=== PATIENT | female | born 1940 | race African-American/Black ===

== ENCOUNTER 2016-07-25 06:07 | Emergency (ER) | payer OTHER ==
[~2016-07-25] VITALS: Ht 167.6 cm; Wt 127.0 kg
[~2016-07-25 06:07] MED LIST: ALBU6.7H2 INH; ASPI-1035 PO; ATOR40TA70 PO; FLUO40CA49 PO; FLUT1DIS3 INH; HYDR-519 PO; INSASP SQ; INSU100V3 SUBCUT; LOSA50TA20 PO; METO25TA6 PO; TERA1CAP PO
[2016-07-25] MEDS ORDERED: MORPHINE SULFATE 4 MG/ML CPJ (NOT FOR IM USE) IV STA (06:39)
[2016-07-25 07:13] LABS: BASOPHILS % 0.5 % (0.0-2.0); DIFFERENTIAL COMMENT 0; EOSINOPHILS % 0.6 % (0.0-5.0); HEMATOCRIT. 43.1 % (36.0-48.0); HEMOGLOBIN. 13.9 g/dL (12.0-16.0); LYMPHOCYTES % 10.8 % (20.0-50.0); MEAN CORPUSCULAR HGB CONC 32.1 g/dL (31.0-37.0); MEAN CORPUSCULAR VOLUME 87.2 fL (81.0-99.0); MEAN PLATELET VOLUME 7.8 fl (7.4-10.4); MONOCYTES % 6.3 % (2.0-8.0); NEUTROPHILS % 81.8 % (40.0-76.0); PLATELET 265 x1000/uL (130-400); RED BLOOD CELL COUNT 4.95 mill/uL (4.2-5.4); RED CELL DISTRIBUTION WIDTH 16.2 % (11.6-14.6); WHITE BLOOD COUNT 16.3 x1000/uL (4.5-11.0)
[2016-07-25] MEDS ORDERED: ONDANSETRON HCL 4MG/2ML VIAL IV ONE (07:15)
[2016-07-25 07:20] LABS: CHLORIDE 100 mEq/L (98-107); INDEX HEMOLYSI 1 (1-3); INDEX ICTERIC 1 (1-4); INDEX LIPEMIC 1 (1-3)
[2016-07-25 07:22] LABS: INR 1.2; PROTHROMBIN TIME 12.2 sec
[2016-07-25 07:23] LABS: CLARITY URINE CLEAR (CLEAR); COLOR URINE YELLOW (YELLOW); GLUCOSE URINE NEGATIVE (NEGATIVE); KETONES URINE NEGATIVE (NEGATIVE); LEUKOCYTE ESTERASE URINE NEGATIVE (NEGATIVE); NITRITE URINE POSITIVE (NEGATIVE); OCCULT BLOOD URINE NEGATIVE (NEGATIVE); PH URINE 7.5 (4.5-8.0); PROTEIN URINE 4+ (NEGATIVE); SPECIFIC GRAVITY URINE 1.021 (1.005-1.030)
[2016-07-25 07:28] LABS: ALANINE AMINOTRANSFERASE 13 IU/L (13-61); ALBUMIN 3.6 g/dL (3.4-5.0); ANION GAP 15; CALCIUM 9.3 mg/dL (8.5-10.1); CARBON DIOXIDE 28 mEq/L (21-32); LIPASE 129 IU/L (73-393); UREA NITROGEN BLOOD 27 mg/dL (7-21); eGFR > 60 mL/min (>60)
[2016-07-25] MEDS ORDERED: LEVOFLOXACIN 750MG PREMIX 150 ML IV ONE (07:45)
[2016-07-25 07:48] LABS: SQUAMOUS EPITHELIAL CELL URINE 2+ /lpf (RARE/1+)
[2016-07-25 07:49] LABS: BACTERIA URINE 4+; RBC URINE 0-2 /hpf (0-2)
[2016-07-25] MEDS ORDERED: MORPHINE SULFATE 4 MG/ML CPJ (NOT FOR IM USE) IV ONE ×2 (08:00→11:45)
[2016-07-25] MEDS ORDERED: SODIUM CHLORIDE 0.9% 1,000 ML IV ONE (09:55)
[2016-07-25 12:17] VITALS: BP 165/79
== END 2016-07-25 12:54 | disposition short-term general hospital (02) ==
LOC: ER 06:07
DX: K43.9 Ventral hernia without obstruction or gangrene (principal); E11.9 Type 2 diabetes mellitus without complications; E78.5 Hyperlipidemia, unspecified; J44.9 Chronic obstructive pulmonary disease, unspecified; Z88.0 Allergy status to penicillin; Z88.8 Allergy status to other drugs, medicaments and biological substances; Z79.899 Other long term (current) drug therapy; Z79.4 Long term (current) use of insulin; Z79.82 Long term (current) use of aspirin; Z87.891 Personal history of nicotine dependence; F12.10 Cannabis abuse, uncomplicated; I10 Essential (primary) hypertension
CPT/HCPCS: 36415; 43753; 71010; 74176; 80053; 81001; 82962; 83690; 85025; 85610; 96361; 96365; 96366; 96375; 96376; 99285; J1956; J2270; J2405; J7030

== ENCOUNTER 2018-02-14 18:24 | Emergency (ER) | payer OTHER ==
[~2018-02-14] VITALS: Ht 170.2 cm; Wt 109.0 kg
[~2018-02-14 18:24] MED LIST changes: -ALBU6.7H2 INH; +ALBU6.7H9 INH; -ASPI-1035 PO; +ASPI-1158 PO; -TERA1CAP PO; +TERA1CAP7 PO
[2018-02-14] MEDS ORDERED: MAGNESIUM/ALUMINUM HYDROXIDE/SIMETHICONE 30ML UDC PO STA (18:46)
[2018-02-14] MEDS ORDERED: SODIUM CHLORIDE 0.9% 1,000 ML IV ONE (18:46)
[2018-02-14] MEDS ORDERED: KETOROLAC 30MG/ML VIAL IV STA (18:46)
[2018-02-14] MEDS ORDERED: ONDANSETRON HCL 4MG/2ML INJ IV STA (18:46)
[2018-02-14 19:26] LABS: HEMATOCRIT. 36.8 % (36.0-48.0); MEAN CORPUSCULAR HEMOGLOBIN 29.1 pg (28.0-32.0); MEAN CORPUSCULAR VOLUME 89.4 fL (81.0-99.0); MEAN PLATELET VOLUME 7.5 fl (7.4-10.4); PLATELET 244 x1000/uL (130-400); RED BLOOD CELL COUNT 4.11 mill/uL (4.2-5.4); RED CELL DISTRIBUTION WIDTH 16.2 % (11.6-14.6)
[2018-02-14 19:31] LABS: CHLORIDE 101 mEq/L (98-107)
[2018-02-14 20:21] LABS: PLATELET ESTIMATE NORMAL
[2018-02-14 21:09] LABS: CLARITY URINE CLOUDY (CLEAR); COLOR URINE YELLOW (YELLOW); KETONES URINE TRACE (NEGATIVE); LEUKOCYTE ESTERASE URINE NEGATIVE (NEGATIVE); NITRITE URINE NEGATIVE (NEGATIVE); OCCULT BLOOD URINE TRACE (NEGATIVE); PROTEIN URINE 3+ (NEGATIVE); SPECIFIC GRAVITY URINE 1.021 (1.005-1.030)
[2018-02-14 22:05] VITALS: BP 179/75
== END 2018-02-14 22:08 | disposition home or self-care (01) ==
LOC: ER 18:24
DX: R10.33 Periumbilical pain (principal); R11.2 Nausea with vomiting, unspecified; I50.9 Heart failure, unspecified; E78.00 Pure hypercholesterolemia, unspecified; E11.9 Type 2 diabetes mellitus without complications; F12.10 Cannabis abuse, uncomplicated; Z88.2 Allergy status to sulfonamides; Z88.0 Allergy status to penicillin; Z88.6 Allergy status to analgesic agent; Z88.1 Allergy status to other antibiotic agents; J44.9 Chronic obstructive pulmonary disease, unspecified; Z91.011 Allergy to milk products; Z88.8 Allergy status to other drugs, medicaments and biological substances; Z79.4 Long term (current) use of insulin; Z79.82 Long term (current) use of aspirin; Z79.899 Other long term (current) drug therapy; I11.0 Hypertensive heart disease with heart failure; Z86.73 Personal history of transient ischemic attack (TIA), and cerebral infarction without residual deficits
CPT/HCPCS: 36415; 74176; 80053; 81003; 83690; 85025; 96361; 96374; 96375; 99285; J1885; J2405; J7030

== ENCOUNTER 2018-06-11 10:33 | Inpatient (IN) | payer OTHER ==
[~2018-06-11] VITALS: Ht 165.1 cm; Wt 115.4 kg
[2018-06-11] MEDS ORDERED: METHYLPREDNISOLONE SOD SUCC 125 MG/2 ML VIAL IV STA (10:44)
[2018-06-11] MEDS ORDERED: ALBUTEROL (0.083%) 2.5MG/3ML NEB HHN STA (10:44)
[2018-06-11] MEDS ORDERED: IPRATROPIUM BROMIDE (0.02%) 0.5MG/2.5ML NEB HHN STA (10:44)
[2018-06-11] MEDS ORDERED: LEVOFLOXACIN 750MG PREMIX 150 ML IV STA (10:44)
[2018-06-11] MEDS ORDERED: ALBUTEROL (0.5%) 2.5MG/0.5ML NEB HHN ONE (11:00)
[2018-06-11] MEDS ORDERED: ALBUTEROL (0.083%) 2.5MG/3ML NEB ONE (11:01)
[2018-06-11] MEDS ORDERED: IPRATROPIUM BROMIDE (0.02%) 0.5MG/2.5ML NEB ONE (11:01)
[2018-06-11 11:42] LABS: BASOPHILS % 0.7 % (0.0-2.0); EOSINOPHILS % 2.3 % (0.0-5.0); HEMATOCRIT. 26.6 % (36.0-48.0); HEMOGLOBIN. 8.3 g/dL (12.0-16.0); LYMPHOCYTES % 17.6 % (20.0-50.0); MEAN CORPUSCULAR VOLUME 89.6 fL (81.0-99.0); MEAN PLATELET VOLUME 7.2 fl (7.4-10.4); MONOCYTES % 8.2 % (2.0-8.0); NEUTROPHILS % 71.2 % (40.0-76.0); PLATELET 213 x1000/uL (130-400); RED BLOOD CELL COUNT 2.97 mill/uL (4.2-5.4)
[2018-06-11 11:47] LABS: CHLORIDE 105 mEq/L (98-107)
[2018-06-11] MEDS ORDERED: FUROSEMIDE 40MG/4ML VIAL IVP ONE (12:00)
[2018-06-11] MEDS ORDERED: BUDESONIDE 0.5MG/2ML NEB HHN SCH (13:30)
[2018-06-11] MEDS ORDERED: ONDANSETRON HCL 4MG/2ML INJ IV PRN (13:30)
[2018-06-11] MEDS: ACETAMINOPHEN 325MG TABLET PO PRN (15:15)
[2018-06-11 16:09] LABS: CLARITY URINE CLEAR (CLEAR); COLOR URINE YELLOW (YELLOW); KETONES URINE NEGATIVE (NEGATIVE); LEUKOCYTE ESTERASE URINE NEGATIVE (NEGATIVE); NITRITE URINE NEGATIVE (NEGATIVE); OCCULT BLOOD URINE TRACE (NEGATIVE); PROTEIN URINE 2+ (NEGATIVE); SPECIFIC GRAVITY URINE 1.013 (1.005-1.030); UROBILINOGEN URINE 0.2 E.U./dL (0.2-1.0)
[2018-06-11 16:22] LABS: *AMPHETAMINES SCREEN URINE NEGATIVE (NEGATIVE); *BARBITURATES SCREEN URINE NEGATIVE (NEGATIVE); *BENZODIAZEPINES SCREEN URINE NEGATIVE (NEGATIVE); *COCAINE SCREEN URINE NEGATIVE (NEGATIVE)
[2018-06-11 16:23] LABS: CANNABINOID URINE SCREEN NEGATIVE (NEGATIVE); METHADONE URINE SCREEN NEGATIVE (NEGATIVE); OPIATES URINE SCREEN PRESUMTIVE POSITIVE (NEGATIVE); PHENCYCLIDINE URINE SCREEN NEGATIVE (NEGATIVE)
[2018-06-11] MEDS ORDERED: IPRATROPIUM/ALBUTEROL 0.5-3(2.5)MG/3ML NEB HHN PRN (16:48)
[2018-06-11] MEDS ORDERED: GUAIFENESIN-DM 200MG-20MG/10ML UDC PO PRN (17:00)
[2018-06-11 18:12] VITALS: BP 156/69
[2018-06-11] MEDS: METHYLPREDNISOLONE SOD SUCC 40 MG/ML VIAL IV SCH (18:57)
[2018-06-11 19:01] LABS: BG BASE EXCESS 5.3 mmol/L (-2.0-2.0); BG BILEVEL POS AIRWAY PRESSURE 20/5; BG CARBOXYHEMOGLOBIN 0.2 % (0.5-1.5); BG FRACTION INSPIRED OXYGEN 65; BG HCO3 ACT 31.9 mmol/L (22.0-26.0); BG METHEMOGLOBIN 0.1 % (0.0-1.5); BG OXYHEMOGLOBIN 98.7 % (94.0-97.0); BG PCO2 58.1 mmHg (35.0-45.0); BG PH 7.358 (7.350-7.450); BG PO2 178.1 mmHg (75.0-100.0); BG SAMPLE SITE RIGHT RADIAL; BG TOTAL HEMOGLOBIN 10.2 g/dL (12.0-18.0); BG VENT MODE MASK - BIPAP; BG VENT RATE 16 set
[2018-06-11] MEDS: IPRATROPIUM/ALBUTEROL 0.5-3(2.5)MG/3ML NEB HHN SCH (20:46)
[2018-06-11 22:00] VITALS: BP 156/66
[2018-06-12] VITALS (11 sets, daily range): BP systolic 133–160; BP diastolic 57–77
[2018-06-12] MEDS: GUAIFENESIN 600MG ER TABLET PO SCH ×3 (00:06→21:18)
[2018-06-12] MEDS: IPRATROPIUM/ALBUTEROL 0.5-3(2.5)MG/3ML NEB HHN SCH ×6 (01:01→21:27)
[2018-06-12] MEDS: METHYLPREDNISOLONE SOD SUCC 40 MG/ML VIAL IV SCH ×3 (03:39→17:25)
[2018-06-12] MEDS ORDERED: DEXTROSE 50% WATER 50ML SYRINGE IV PRN (05:30)
[2018-06-12] MEDS: BLOOD SUGAR DIAGNOSTIC STRIP TEST SCH ×4 (05:51→21:18)
[2018-06-12 07:21] LABS: BASOPHILS % 0.1 % (0.0-2.0); HEMATOCRIT. 25.4 % (36.0-48.0); HEMOGLOBIN. 8.1 g/dL (12.0-16.0); LYMPHOCYTES % 7.1 % (20.0-50.0); MEAN CORPUSCULAR HEMOGLOBIN 28.1 pg (28.0-32.0); MEAN CORPUSCULAR VOLUME 87.5 fL (81.0-99.0); MEAN PLATELET VOLUME 7.2 fl (7.4-10.4); MONOCYTES % 5.1 % (2.0-8.0); NEUTROPHILS % 87.7 % (40.0-76.0); PLATELET 191 x1000/uL (130-400); RED CELL DISTRIBUTION WIDTH 16.8 % (11.6-14.6)
[2018-06-12 07:59] LABS: CHLORIDE 103 mEq/L (98-107)
[2018-06-12] MEDS: FUROSEMIDE 40MG/4ML VIAL IVP SCH (08:17)
[2018-06-12] MEDS: INSULIN LISPRO 100 UNITS/ML SUBCUT SCH ×4 (08:18→21:20)
[2018-06-12 10:40] LABS: T4 FREE 1.18 ng/dL (0.76-1.46)
[2018-06-12] MEDS: AZITHROMYCIN 500 MG TABLET PO SCH (11:09)
[2018-06-12] MEDS: ENOXAPARIN 30MG/0.3ML SYR SUBCUT SCH ×2 (11:11→21:19)
[2018-06-12 15:54] LABS: CREATINE KINASE 76 IU/L (26-192)
[2018-06-12 15:55] LABS: CREATINE KINASE MB FRACTION < 1.0 ng/mL (0.5-3.6)
[2018-06-12] MEDS: NYSTATIN POWDER 15GM TOP SCH ×2 (17:00→17:20)
[2018-06-12] MEDS: ACETAMINOPHEN 325MG TABLET PO PRN (22:48)
[2018-06-13] VITALS (12 sets, daily range): BP systolic 137–164; BP diastolic 53–90
[2018-06-13] MEDS: IPRATROPIUM/ALBUTEROL 0.5-3(2.5)MG/3ML NEB HHN SCH ×6 (00:29→20:20)
[2018-06-13 00:36] LABS: CREATINE KINASE MB FRACTION 1.4 ng/mL (0.5-3.6)
[2018-06-13] MEDS: METHYLPREDNISOLONE SOD SUCC 40 MG/ML VIAL IV SCH ×2 (02:44→12:44)
[2018-06-13] MEDS: BLOOD SUGAR DIAGNOSTIC STRIP TEST SCH ×4 (05:38→21:17)
[2018-06-13 07:35] LABS: HEMATOCRIT. 27.2 % (36.0-48.0); HEMOGLOBIN. 8.8 g/dL (12.0-16.0); MEAN CORPUSCULAR HEMOGLOBIN 28.3 pg (28.0-32.0); MEAN CORPUSCULAR VOLUME 87.3 fL (81.0-99.0); MEAN PLATELET VOLUME 7.5 fl (7.4-10.4); PLATELET 234 x1000/uL (130-400); RED BLOOD CELL COUNT 3.12 mill/uL (4.2-5.4); RED CELL DISTRIBUTION WIDTH 17.1 % (11.6-14.6)
[2018-06-13 07:37] LABS: CHLORIDE 104 mEq/L (98-107)
[2018-06-13 07:51] LABS: CREATINE KINASE 93 IU/L (26-192)
[2018-06-13 07:54] LABS: CREATINE KINASE MB FRACTION 1.1 ng/mL (0.5-3.6)
[2018-06-13] MEDS: GUAIFENESIN 600MG ER TABLET PO SCH ×2 (09:06→21:17)
[2018-06-13] MEDS: AZITHROMYCIN 500 MG TABLET PO SCH (09:06)
[2018-06-13] MEDS: ENOXAPARIN 30MG/0.3ML SYR SUBCUT SCH ×2 (09:06→21:15)
[2018-06-13] MEDS: FUROSEMIDE 40MG/4ML VIAL IVP SCH (09:06)
[2018-06-13] MEDS: NYSTATIN POWDER 15GM TOP SCH ×3 (09:07→17:35)
[2018-06-13] MEDS: INSULIN LISPRO 100 UNITS/ML SUBCUT SCH ×4 (09:08→21:16)
[2018-06-13] MEDS: INSULIN GLARGINE UD 100 UNITS/ML SYR SUBCUT SCH ×2 (12:36→21:17)
[2018-06-13] MEDS: ACETAMINOPHEN 325MG TABLET PO PRN (19:27)
[2018-06-13 21:29] LABS: PLATELET ESTIMATE NORMAL
[2018-06-14] VITALS (12 sets, daily range): BP systolic 135–168; BP diastolic 66–97
[2018-06-14] MEDS: IPRATROPIUM/ALBUTEROL 0.5-3(2.5)MG/3ML NEB HHN SCH ×6 (00:34→20:47)
[2018-06-14 05:45] LABS: HEMATOCRIT. 27.3 % (36.0-48.0); HEMOGLOBIN. 8.7 g/dL (12.0-16.0); MEAN CORPUSCULAR HEMOGLOBIN 27.5 pg (28.0-32.0); MEAN CORPUSCULAR VOLUME 85.9 fL (81.0-99.0); MEAN PLATELET VOLUME 7.4 fl (7.4-10.4); PLATELET 258 x1000/uL (130-400); RED BLOOD CELL COUNT 3.17 mill/uL (4.2-5.4); RED CELL DISTRIBUTION WIDTH 16.9 % (11.6-14.6)
[2018-06-14 06:07] LABS: CHLORIDE 101 mEq/L (98-107)
[2018-06-14] MEDS: BLOOD SUGAR DIAGNOSTIC STRIP TEST SCH ×4 (06:50→21:59)
[2018-06-14] MEDS: AZITHROMYCIN 500 MG TABLET PO SCH (08:41)
[2018-06-14] MEDS: ENOXAPARIN 30MG/0.3ML SYR SUBCUT SCH ×2 (08:42→22:25)
[2018-06-14] MEDS: PREDNISONE 20MG TABLET PO SCH (08:42)
[2018-06-14] MEDS: GUAIFENESIN 600MG ER TABLET PO SCH ×2 (08:42→22:24)
[2018-06-14] MEDS: FUROSEMIDE 40MG/4ML VIAL IVP SCH (08:42)
[2018-06-14] MEDS: INSULIN LISPRO 100 UNITS/ML SUBCUT SCH ×4 (08:43→22:40)
[2018-06-14] MEDS: NYSTATIN POWDER 15GM TOP SCH ×3 (08:52→17:41)
[2018-06-14] MEDS: ACETAMINOPHEN 325MG TABLET PO PRN (09:46)
[2018-06-14] MEDS: INSULIN GLARGINE UD 100 UNITS/ML SYR SUBCUT SCH ×2 (09:48→22:40)
[2018-06-14] MEDS ORDERED: CLONIDINE 0.1MG TABLET PO PRN (10:30)
[2018-06-14] MEDS ORDERED: FURO20TA4 MT (10:52)
[2018-06-14] MEDS ORDERED: AMLO5TAB88 MT (10:52)
[2018-06-14] MEDS ORDERED: METO-396 MT (10:52)
[2018-06-14] MEDS ORDERED: CHOL200059 MT (10:52)
[2018-06-14] MEDS ORDERED: ZYR5 MT (10:52)
[2018-06-14] MEDS ORDERED: ASPI-1159 MT (10:52)
[2018-06-14] MEDS ORDERED: METF-516 MT (10:52)
[2018-06-14] MEDS ORDERED: LOSA100T14 MT (10:52)
[2018-06-14] MEDS ORDERED: GABA-531 MT (10:52)
[2018-06-14] MEDS ORDERED: ATOR40TA70 MT (10:52)
[2018-06-14] MEDS ORDERED: FLUO-124 MT (10:52)
[2018-06-14] MEDS ORDERED: HYDR-4009 MT (10:52)
[2018-06-14] MEDS: AMLODIPINE 5MG TABLET PO SCH (11:54)
[2018-06-14] MEDS: METOPROLOL TARTRATE 25MG TABLET PO SCH ×2 (11:55→22:24)
[2018-06-14] MEDS: LOSARTAN POTASSIUM 100 MG TABLET PO SCH (11:55)
[2018-06-14] MEDS: FLUOXETINE HCL 20MG CAPSULE PO SCH (11:55)
[2018-06-14 15:22] LABS: PLATELET ESTIMATE NORMAL
[2018-06-15] VITALS (13 sets, daily range): BP systolic 131–167; BP diastolic 58–76
[2018-06-15] MEDS: IPRATROPIUM/ALBUTEROL 0.5-3(2.5)MG/3ML NEB HHN SCH ×6 (00:36→21:06)
[2018-06-15] MEDS: INSULIN LISPRO 100 UNITS/ML SUBCUT SCH ×4 (06:49→22:02)
[2018-06-15] MEDS: BLOOD SUGAR DIAGNOSTIC STRIP TEST SCH ×4 (06:49→21:57)
[2018-06-15 08:01] LABS: BASOPHILS % 0.2 % (0.0-2.0); EOSINOPHILS % 1.1 % (0.0-5.0); HEMATOCRIT. 33.5 % (36.0-48.0); HEMOGLOBIN. 10.7 g/dL (12.0-16.0); LYMPHOCYTES % 23.5 % (20.0-50.0); MEAN CORPUSCULAR HEMOGLOBIN 27.6 pg (28.0-32.0); MEAN CORPUSCULAR VOLUME 86.6 fL (81.0-99.0); MEAN PLATELET VOLUME 7.2 fl (7.4-10.4); NEUTROPHILS % 63.2 % (40.0-76.0); PLATELET 282 x1000/uL (130-400); RED BLOOD CELL COUNT 3.87 mill/uL (4.2-5.4); RED CELL DISTRIBUTION WIDTH 17.1 % (11.6-14.6)
[2018-06-15] MEDS: FUROSEMIDE 40MG/4ML VIAL IVP SCH (08:23)
[2018-06-15] MEDS: METOPROLOL TARTRATE 25MG TABLET PO SCH ×2 (08:23→21:58)
[2018-06-15] MEDS: GUAIFENESIN 600MG ER TABLET PO SCH ×2 (08:23→21:58)
[2018-06-15] MEDS: AMLODIPINE 5MG TABLET PO SCH (08:23)
[2018-06-15] MEDS: LOSARTAN POTASSIUM 100 MG TABLET PO SCH (08:23)
[2018-06-15] MEDS: AZITHROMYCIN 500 MG TABLET PO SCH (08:23)
[2018-06-15] MEDS: FLUOXETINE HCL 20MG CAPSULE PO SCH (08:23)
[2018-06-15] MEDS: PREDNISONE 20MG TABLET PO SCH (08:24)
[2018-06-15] MEDS: ENOXAPARIN 30MG/0.3ML SYR SUBCUT SCH ×2 (08:24→21:59)
[2018-06-15] MEDS: GABAPENTIN 300MG CAPSULE PO SCH (08:26)
[2018-06-15] MEDS: NYSTATIN POWDER 15GM TOP SCH ×3 (08:27→16:49)
[2018-06-15 08:38] LABS: CHLORIDE 102 mEq/L (98-107)
[2018-06-15] MEDS ORDERED: LISINOPRIL 10MG TABLET PO SCH (09:00)
[2018-06-15] MEDS: INSULIN GLARGINE UD 100 UNITS/ML SYR SUBCUT SCH ×2 (12:29→22:03)
[2018-06-16 00:37] VITALS: BP 133/53
[2018-06-16] MEDS: IPRATROPIUM/ALBUTEROL 0.5-3(2.5)MG/3ML NEB HHN SCH ×3 (00:38→08:34)
[2018-06-16 02:36] VITALS: BP 130/51
[2018-06-16 04:00] VITALS: BP 136/62
[2018-06-16 06:00] VITALS: BP 141/63
[2018-06-16] MEDS: BLOOD SUGAR DIAGNOSTIC STRIP TEST SCH (06:22)
[2018-06-16 08:00] VITALS: BP 160/61
[2018-06-16] MEDS: FLUOXETINE HCL 20MG CAPSULE PO SCH (08:02)
[2018-06-16] MEDS: AZITHROMYCIN 500 MG TABLET PO SCH (08:02)
[2018-06-16] MEDS: FUROSEMIDE 40MG/4ML VIAL IVP SCH (08:02)
[2018-06-16] MEDS: AMLODIPINE 5MG TABLET PO SCH (08:02)
[2018-06-16] MEDS: METOPROLOL TARTRATE 25MG TABLET PO SCH (08:02)
[2018-06-16] MEDS: GUAIFENESIN 600MG ER TABLET PO SCH (08:03)
[2018-06-16] MEDS: LOSARTAN POTASSIUM 100 MG TABLET PO SCH (08:03)
[2018-06-16] MEDS: PREDNISONE 20MG TABLET PO SCH (08:03)
[2018-06-16] MEDS: GABAPENTIN 300MG CAPSULE PO SCH (08:22)
[2018-06-16] MEDS: ENOXAPARIN 30MG/0.3ML SYR SUBCUT SCH (08:23)
[2018-06-16] MEDS: INSULIN LISPRO 100 UNITS/ML SUBCUT SCH (08:30)
[2018-06-16] MEDS: NYSTATIN POWDER 15GM TOP SCH (09:00)
[2018-06-16 09:46] VITALS: BP 165/89
== END 2018-06-16 10:53 | disposition home or self-care (01) | DRG 291 ==
LOC: ER 10:33 → 3WST 12:26 → EDBEDREQ 12:29 → EDBEDREQTM 12:29 → ENRESERV 15:30
PROVIDERS: ADMIT Internal Medicine; ATTEND Internal Medicine
PROC: 5A09357 Assistance with Respiratory Ventilation, Less than 24 Consecutive Hours, Continuous Positive Airway Pressure (ICD-10-PCS; principal; 2018-06-11)
PROC: 5A09357 Assistance with Respiratory Ventilation, Less than 24 Consecutive Hours, Continuous Positive Airway Pressure (ICD-10-PCS; 2018-06-13)
PROC: 5A09357 Assistance with Respiratory Ventilation, Less than 24 Consecutive Hours, Continuous Positive Airway Pressure (ICD-10-PCS; 2018-06-14)
PROC: 5A09357 Assistance with Respiratory Ventilation, Less than 24 Consecutive Hours, Continuous Positive Airway Pressure (ICD-10-PCS; 2018-06-16)
DX: I11.0 Hypertensive heart disease with heart failure (principal); J96.01 Acute respiratory failure with hypoxia; E44.1 Mild protein-calorie malnutrition; J44.1 Chronic obstructive pulmonary disease with (acute) exacerbation; Z68.41 Body mass index [BMI] 40.0-44.9, adult; I42.9 Cardiomyopathy, unspecified; E78.5 Hyperlipidemia, unspecified; E11.9 Type 2 diabetes mellitus without complications; E66.01 Morbid (severe) obesity due to excess calories; D64.9 Anemia, unspecified; I50.43 Acute on chronic combined systolic (congestive) and diastolic (congestive) heart failure; I27.20 Pulmonary hypertension, unspecified; I48.0 Paroxysmal atrial fibrillation; Z86.73 Personal history of transient ischemic attack (TIA), and cerebral infarction without residual deficits; Z88.2 Allergy status to sulfonamides; Z88.0 Allergy status to penicillin; Z99.81 Dependence on supplemental oxygen; Z88.8 Allergy status to other drugs, medicaments and biological substances; Z88.6 Allergy status to analgesic agent; Z90.49 Acquired absence of other specified parts of digestive tract; Z71.3 Dietary counseling and surveillance
CPT/HCPCS: 36415; 36600; 71045; 80048; 80061; 80305; 82375; 82550; 82553; 82805; 82962; 83036; 83605; 83880; 84134; 84145; 84439; 84443; 84484; 85379; 87077; 87186; 93005; 93306; 93970; 94640; 94644; 94660; 96374; 96375; 97163; 99291; J1650; J1815; J1940; J1956; J2920; J2930; J7512; J7611; J7620; J7626; A4315

== ENCOUNTER 2018-07-19 05:27 | Emergency (ER) | payer OTHER ==
[~2018-07-19] VITALS: Ht 165.1 cm; Wt 122.0 kg
[~2018-07-19 05:27] MED LIST changes: -ALBU6.7H9 INH; +AMLO5TAB88 MT; -ASPI-1158 PO; +ASPI-1159 MT; +ATOR40TA70 MT; -ATOR40TA70 PO; +CHOL200059 MT; +FLUO-124 MT; -FLUO40CA49 PO; -FLUT1DIS3 INH; +FURO20TA4 MT; +GABA-531 MT; +HYDR-4009 MT; -HYDR-519 PO; -INSASP SQ; -INSU100V3 SUBCUT; +LOSA100T14 MT; -LOSA50TA20 PO; +METF-516 MT; +METO-396 MT; -METO25TA6 PO; -TERA1CAP7 PO; +ZYR5 MT
[2018-07-19] MEDS ORDERED: SODIUM CHLORIDE 0.9% 500 ML IV ONE (07:12)
[2018-07-19] MEDS ORDERED: IPRATROPIUM/ALBUTEROL 0.5-3(2.5)MG/3ML NEB HHN ONE (07:15)
[2018-07-19] MEDS ORDERED: ONDANSETRON HCL 4MG/2ML INJ IV ONE (07:15)
[2018-07-19] MEDS ORDERED: METHYLPREDNISOLONE SOD SUCC 125 MG/2 ML VIAL IV ONE (07:15)
[2018-07-19] MEDS ORDERED: MORPHINE SULFATE 4 MG/ML CPJ (NOT FOR IM USE) IV ONE (07:15)
[2018-07-19] MEDS ORDERED: LEVOFLOXACIN 750MG PREMIX 150 ML IV ONE (07:15)
[2018-07-19 07:30] LABS: CHLORIDE 102 mEq/L (98-107); INR 1.2
[2018-07-19 07:36] LABS: BASOPHILS % 0.7 % (0.0-2.0); EOSINOPHILS % 2.3 % (0.0-5.0); HEMATOCRIT. 26.1 % (36.0-48.0); HEMOGLOBIN. 8.2 g/dL (12.0-16.0); LYMPHOCYTES % 11.7 % (20.0-50.0); MEAN CORPUSCULAR HEMOGLOBIN 27.8 pg (28.0-32.0); MEAN CORPUSCULAR VOLUME 87.8 fL (81.0-99.0); MEAN PLATELET VOLUME 7.4 fl (7.4-10.4); MONOCYTES % 7.6 % (2.0-8.0); NEUTROPHILS % 77.7 % (40.0-76.0); PLATELET 288 x1000/uL (130-400); RED BLOOD CELL COUNT 2.97 mill/uL (4.2-5.4); RED CELL DISTRIBUTION WIDTH 17.1 % (11.6-14.6)
[2018-07-19] MEDS ORDERED: FUROSEMIDE 40MG/4ML VIAL IVP ONE (08:15)
[2018-07-19] MEDS ORDERED: ASPIRIN 81MG TABLET PO ONE (08:15)
[2018-07-19 08:34] LABS: BG BASE EXCESS -0.1 mmol/L (-2.0-2.0); BG CARBOXYHEMOGLOBIN 0.8 % (0.5-1.5); BG DEOXYHEMOGLOBIN 18.3 % (0.0-5.0); BG FRACTION INSPIRED OXYGEN 32; BG HCO3 ACT 26.8 mmol/L (22.0-26.0); BG METHEMOGLOBIN 0.4 % (0.0-1.5); BG OXYGEN SATURATION 81.5 % (92.0-98.5); BG OXYHEMOGLOBIN 80.5 % (94.0-97.0); BG PH 7.298 (7.350-7.450); BG PO2 51.4 mmHg (75.0-100.0); BG SAMPLE SITE RIGHT RADIAL; BG TOTAL HEMOGLOBIN 8.8 g/dL (12.0-18.0); BG VENT MODE NASAL CANNULA
[2018-07-19 08:47] LABS: CLARITY URINE CLEAR (CLEAR); COLOR URINE YELLOW (YELLOW); KETONES URINE NEGATIVE (NEGATIVE); LEUKOCYTE ESTERASE URINE TRACE (NEGATIVE); NITRITE URINE NEGATIVE (NEGATIVE); OCCULT BLOOD URINE NEGATIVE (NEGATIVE); PROTEIN URINE NEGATIVE (NEGATIVE); SPECIFIC GRAVITY URINE 1.015 (1.005-1.030); UROBILINOGEN URINE 0.2 E.U./dL (0.2-1.0)
[2018-07-19 12:13] VITALS: BP 132/51
== END 2018-07-19 12:14 | disposition short-term general hospital (02) ==
LOC: ER 05:27 → CANBEDREQ 15:49
DX: I11.0 Hypertensive heart disease with heart failure (principal); I50.9 Heart failure, unspecified; E11.9 Type 2 diabetes mellitus without complications; J44.9 Chronic obstructive pulmonary disease, unspecified; E66.9 Obesity, unspecified; Z68.41 Body mass index [BMI] 40.0-44.9, adult; Z88.0 Allergy status to penicillin; Z88.8 Allergy status to other drugs, medicaments and biological substances; Z88.2 Allergy status to sulfonamides; Z88.6 Allergy status to analgesic agent
CPT/HCPCS: 36415; 36600; 71045; 80053; 81003; 82375; 82805; 82962; 83605; 83690; 83880; 84145; 84484; 85025; 85610; 87040; 87077; 87086; 87186; 93005; 94640; 96365; 96375; 99291; J1940; J1956; J2270; J2405; J2930; J7040; J7620

== ENCOUNTER 2021-12-30 04:15 | Emergency (ER) | payer OTHER ==
[~2021-12-30] VITALS: Ht 167.6 cm; Wt 95.5 kg
[~2021-12-30 04:15] MED LIST changes: -ASPI-1159 MT; +ASPI-1497 MT; -FLUO-124 MT; +FLUO20CA39 MT; -GABA-531 MT; +GABA-532 MT; -LOSA100T14 MT; +LOSA100T32 MT; -METF-516 MT; +METF-818 MT
[2021-12-30 05:39] LABS: BG BASE EXCESS 3.9 mmol/L (-2.0-2.0); BG CARBOXYHEMOGLOBIN 0.5 % (0.5-1.5); BG FRACTION INSPIRED OXYGEN 21; BG HCO3 ACT 27.5 mmol/L (22.0-26.0); BG METHEMOGLOBIN 0.2 % (0.0-1.5); BG OXYHEMOGLOBIN 92.3 % (94.0-97.0); BG PCO2 37.8 mmHg (35.0-45.0); BG PH 7.479 (7.350-7.450); BG SAMPLE SITE RIGHT RADIAL; BG TOTAL HEMOGLOBIN 12.5 g/dL (12.0-18.0); BG VENT MODE ROOM AIR
[2021-12-30 05:54] LABS: BASOPHILS % 0.5 % (0.0-2.0); EOSINOPHILS % 1.4 % (0.0-5.0); HEMATOCRIT. 36.9 % (36.0-48.0); HEMOGLOBIN. 11.5 g/dL (12.0-16.0); MEAN CORPUSCULAR HEMOGLOBIN 28.7 pg (28.0-32.0); MEAN CORPUSCULAR VOLUME 92.5 fL (81.0-99.0); MEAN PLATELET VOLUME 7.3 fl (7.4-10.4); MONOCYTES % 7.2 % (2.0-8.0); NEUTROPHILS % 73.9 % (40.0-76.0); PLATELET 263 x1000/uL (130-400); RED BLOOD CELL COUNT 3.99 mill/uL (4.2-5.4); RED CELL DISTRIBUTION WIDTH 15.3 % (11.6-14.6)
[2021-12-30 06:01] LABS: CHLORIDE 108 mEq/L (98-107)
[2021-12-30] MEDS ORDERED: FUROSEMIDE 40MG/4ML VIAL IVP ONE (09:30)
[2021-12-30] MEDS ORDERED: FUROSEMIDE 40MG/4ML VIAL IVP SCH (09:45)
[2021-12-30 12:47] VITALS: BP 151/98
== END 2021-12-30 13:51 | disposition short-term general hospital (02) ==
LOC: ER 04:15
DX: R09.02 Hypoxemia (principal); I50.9 Heart failure, unspecified; E11.9 Type 2 diabetes mellitus without complications; J44.9 Chronic obstructive pulmonary disease, unspecified; Z20.822 Contact with and (suspected) exposure to COVID-19; Z79.84 Long term (current) use of oral hypoglycemic drugs; Z79.899 Other long term (current) drug therapy
CPT/HCPCS: 36415; 36600; 71045; 80053; 82375; 82805; 82962; 83880; 84484; 85025; 87426; 93005; 96374; 99285; C9803; J1940

== ENCOUNTER 2022-02-15 16:56 | Emergency (ER) | payer OTHER ==
[~2022-02-15] VITALS: Ht 167.6 cm; Wt 122.0 kg
[2022-02-15 18:52] LABS: BASOPHILS % 0.5 % (0.0-2.0); EOSINOPHILS % 1.9 % (0.0-5.0); HEMOGLOBIN. 11.5 g/dL (12.0-16.0); LYMPHOCYTES % 19.3 % (20.0-50.0); MEAN CORPUSCULAR HEMOGLOBIN 29.8 pg (28.0-32.0); MEAN CORPUSCULAR VOLUME 90.5 fL (81.0-99.0); MONOCYTES % 6.5 % (2.0-8.0); NEUTROPHILS % 71.8 % (40.0-76.0); PLATELET 334 x1000/uL (130-400); RED BLOOD CELL COUNT 3.87 mill/uL (4.2-5.4); RED CELL DISTRIBUTION WIDTH 15.2 % (11.6-14.6)
[2022-02-15 19:02] LABS: CHLORIDE 105 mEq/L (98-107)
[2022-02-15 19:07] LABS: BG BASE EXCESS -2.5 mmol/L (-2.0-2.0); BG CARBOXYHEMOGLOBIN 0.9 % (0.5-1.5); BG DEOXYHEMOGLOBIN 3.5 % (0.0-5.0); BG FRACTION INSPIRED OXYGEN 21; BG HCO3 ACT 21.2 mmol/L (22.0-26.0); BG METHEMOGLOBIN 0.2 % (0.0-1.5); BG OXYGEN SATURATION 96.5 % (92.0-98.5); BG OXYHEMOGLOBIN 95.4 % (94.0-97.0); BG PCO2 32.7 mmHg (35.0-45.0); BG PH 7.429 (7.350-7.450); BG PO2 80.7 mmHg (75.0-100.0); BG SAMPLE SITE RIGHT RADIAL; BG TOTAL HEMOGLOBIN 11.6 g/dL (12.0-18.0); BG VENT MODE ROOM AIR
[2022-02-15] MEDS: SODIUM CHLORIDE 0.9% 500 ML IV ONE (19:30)
[2022-02-15 19:36] LABS: CLARITY URINE CLOUDY (CLEAR); COLOR URINE YELLOW (YELLOW); KETONES URINE NEGATIVE (NEGATIVE); LEUKOCYTE ESTERASE URINE 2+ (NEGATIVE); NITRITE URINE NEGATIVE (NEGATIVE); OCCULT BLOOD URINE NEGATIVE (NEGATIVE); PH URINE 8.5 (4.5-8.0); PROTEIN URINE 3+ (NEGATIVE); SPECIFIC GRAVITY URINE 1.015 (1.005-1.030)
[2022-02-15] MEDS ORDERED: NITR-87 MT (23:40)
[2022-02-16 00:04] VITALS: BP 137/53
== END 2022-02-16 00:04 | disposition home or self-care (01) ==
LOC: ER 16:56
DX: R06.02 Shortness of breath (principal); J44.9 Chronic obstructive pulmonary disease, unspecified; E11.9 Type 2 diabetes mellitus without complications; I10 Essential (primary) hypertension; F12.10 Cannabis abuse, uncomplicated
CPT/HCPCS: 36415; 36600; 71045; 80053; 81003; 82375; 82805; 83605; 83880; 84443; 84484; 85025; 93005; 96360; 99285; J7040